=== PATIENT | female | born 1935 | race Caucasian/White ===

== ENCOUNTER 2022-09-16 22:59 | Inpatient (IN) ==
--- NOTE | 2022-09-16 23:07 | Emergency Department Note ---
HPI General Chief complaint: Extremity Injury, Lower Stated complaint: knee pain Time Seen by Provider: 09/16/22 23:06 Source: patient and EMS Mode of arrival: ambulatory Limitations: no limitations History of Present Illness HPI Narrative: Narrative: Patient is an 87-year-old female with a history of of GERD, CKD 3, hypertension, PRINCESS, and chronic tubulointerstitial nephritis who presents to the emergency department due to knee pain. She states that she twisted her knee, felt a pop, and then had immediate knee pain on the right. She denies any other symptoms at this time. She states that her knee pain becomes worse with pressure placed on the leg or palpation of the area just above her knee. She denies any other concerns at this time. Related Data Home Medications Medication Instructions Recorded Confirmed acyclovir 200 mg capsule 200 mg PO QDAY 05/17/20 01/06/22 acetaminophen 650 mg 1,300 mg PO Q4H 05/16/21 01/06/22 tablet,extended release bupropion HCl 150 mg 24 hr tablet, 150 mg PO QAM 05/16/21 01/06/22 extended release gabapentin 100 mg capsule 100 mg PO QDAY 05/16/21 01/06/22 fluoxetine 20 mg capsule 60 mg PO QDAY 01/05/22 01/06/22 Allergies Allergy/AdvReac Type Severity Reaction Status Date / Time Nortriptyline [NORTRIPTYLINE] Allergy Severe Hives Verified 09/16/22 23:00 venlafaxine Allergy Severe Unknown Verified 09/16/22 23:00 Review of Systems ROS ROS Narrative: Narrative: Constitutional: Denies fever or weakness Eyes: Denies eye pain or vision change ENT ED: Denies throat pain or rhinorrhea Cardiovascular: Denies chest pain, dyspnea on exertion, orthopnea or edema Respiratory: Denies shortness of breath or cough Gastrointestinal: Denies abdominal pain, nausea, vomiting, diarrhea, constipation, hematochezia or melena Musculoskeletal: Reports joint pain (Right knee); Denies back pain or myalgia Integumentary: Denies rash or lesions Neurological: Denies headache, weakness, numbness, confusion, abnormal gait or dizziness [facility] Narrative Patient History Narrative: Narrative: Medical/Surgical/Family History All Active Problems (Updated 09/17/22 @ 02:11 by Michoacano Monet MD) Costochondritis (Chronic) Sacroiliac joint pain (Chronic) GERD (gastroesophageal reflux disease) (Chronic) Epigastric pain (Chronic) Opioid dependence (Chronic) Chronic low back pain (Chronic) 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, or unspecified chronic kidney disease (Chronic) CKD (chronic kidney disease), stage III (Chronic) Dependent edema (Chronic) Supraventricular tachycardia (Chronic) Primary generalized (osteo)arthritis (Chronic) Lumbar spinal stenosis (Chronic) Lumbar radiculopathy (Chronic) Depression, major, recurrent, moderate (Chronic) Anxiety disorder (Chronic) PRINCESS (obstructive sleep apnea) (Chronic) Herpes simplex (Chronic) HTN (hypertension) (Chronic) CTIN (chronic tubulo-interstitial nephritis) (Chronic) Polypharmacy (Chronic) Cat bite (Acute) No-show for appointment (Acute) Femoral distal fracture (Acute) Medical History (Updated 09/17/22 @ 02:11 by Michoacano Monet MD) Anxiety disorder Chronic low back pain CKD (chronic kidney disease), stage III Costochondritis CTIN (chronic tubulo-interstitial nephritis) This is the most likely diagnosis especially in the face of previous chronic nonsteroidal anti-inflammatory use, PPI use, urinalysis without proteinuria or hematuria. Dependent edema Depression, major, recurrent, moderate Epigastric pain GERD (gastroesophageal reflux disease) Herpes simplex HTN (hypertension) Acceptable control with lisinopril 20 mg a day Hypertensive chronic kidney disease with stage 1 through stage 4 chronic kidney disease, or unspecified chronic kidney disease She has had longstanding hypertension but is been overmedicated in the past with resultant hypotensive episodes. First step would be to wean off the furosemide as I suspect she has no ECF volume expansion or at worst has diuretic related edema the treatment of which is to stop the diuretics. I suspect her underlying renal disease may be more of a tubulointerstitial nephritis. In either case treatment will be avoidance of nonsteroidals, diuretics, and use of lowest dose possible of a RAASI for blood pressure control Knee arthropathy Lumbar radiculopathy Lumbar spinal stenosis Opioid dependence PRINCESS (obstructive sleep apnea) Polypharmacy I believe this is the root cause of her many maladies. The types of pain she described are not the types currently thought of as treatable by a long-term narcotics. This is a problem that may need several colleagues to address. I have put forth a plan to her where she decreases her hydrocodone 1 tablet/day per week starting at her current 5 to 6 tablets a day and decreasing her dose steadily until a month from now she is on a single hydrocodone/acetaminophen at bedtime. In the interval I told her she could replace every tablet of hydrocodone she does not take with a acetaminophen tablet if needed. I would also highly recommend cognitive behavioral therapy and referral to a psychologist. Primary generalized (osteo)arthritis Sacroiliac joint pain Supraventricular tachycardia Surgical History History of appendectomy History of bladder surgery Bladder Sling History of hernia repair (~2015) Incisional and Ventral History of knee surgery (~2009) 2009, 2010 History of shoulder surgery (~1999) History of total hysterectomy Status post debridement (~2015) Of non-healing abdominal hernia Family History Mother Breast cancer Brother Multiple sclerosis Sister CVA (cerebral vascular accident) Social History Alcohol Intake Frequency: does not drink Substance Use: does not use Exam Narrative Narrative: Narrative: General Limitations: no limitations General appearance: Present alert and in no apparent distress; Absent anxious, appears intoxicated or sleepy Head Head: Present atraumatic and normocephalic Eye Eye: Present EOMI; Absent scleral icterus or nystagmus ENT ENT: Present mucous membranes moist; Absent nasal congestion Neck Neck: Present full ROM and trachea midline Chest Chest: Present normal inspection and symmetric chest wall rise; Absent tenderness Respiratory Respiratory: Present normal lung sounds bilaterally; Absent respiratory distress, rales/crackles, wheezes, stridor or accessory muscle use Cardiovascular Cardiovascular: Present regular rate, normal rhythm and normal heart sounds Adbominal Abdominal: Present soft and normal bowel sounds; Absent distention or tenderness Extremities Extremities: Present normal inspection, full ROM and tenderness (Just proximal to the right knee anteriorly) Back Back: Present normal inspection and full ROM; Absent tenderness Neurological Neurological: Present alert and oriented X3; Absent motor sensory deficit Psychiatric Psychiatric: Present normal affect and normal mood Skin Skin: Present warm (WNL), dry and normal color Course Vital Signs Vital signs: Vital Signs Temperature 97.9 F 09/16/22 23:01 Pulse Rate 70 09/16/22 23:01 Respiratory Rate 18 09/16/22 23:01 Blood Pressure 128/78 09/16/22 23:01 Pulse Oximetry (%) 98 09/16/22 23:01 Oxygen Delivery Method Room Air 09/16/22 23:01 Temperature 98.6 F 09/17/22 00:59 Pulse Rate 67 09/17/22 00:59 Respiratory Rate 18 09/17/22 00:59 Blood Pressure 144/96 09/17/22 00:59 Pulse Oximetry (%) 98 09/17/22 00:59 Oxygen Delivery Method Room Air 09/17/22 00:59 MDM MDM Narrative Medical decision making narrative: Narrative: Patient is an 87-year-old female who presents to the emergency department due to right knee pain. Differential diagnosis include distal femoral/periprosthetic fracture and soft tissue injury. Patient is found to have a periprosthetic femoral fracture. I have spoken to Dr. Guillaume who requested a hospitalist admission. I spoke with Dr. Tineo who has accepted patient for admission. Lab Data 09/16/22 23:29 Labs: Lab Results 09/16/22 09/16/22 09/16/22 Range/Units 23:29 23:30 23:40 WBC 4.8 (4.5-11.0) K/mcL RBC 3.01 L (3.59-5.38) M/mcL Hgb 9.7 L (11.2-15.7) g/dL Hct 30.6 L (34.1-44.9) % POC Hct 29.0 L (36-48) MCV 101.7 H (80.0-100.0) fL MCH 32.2 (26.0-34.0) pg MCHC 31.7 (31.0-36.0) g/dL RDW 13.8 (11.5-14.5) % Plt Count 224 (140-440) K/mcL MPV 10.3 (8.8-12.5) fL Immature Gran % (Auto) 0.2 (0.0-0.5) % Neut % (Auto) 63.3 (38.0-78.0) % Lymph % (Auto) 21.5 (15.5-49.0) % [place] % (Auto) 10.9 (1.0-12.0) % Eos % (Auto) 3.5 (0.0-7.0) % Baso % (Auto) 0.6 (0.0-2.0) % Lymph # (Auto) 1.03 L (1.50-4.80) K/mcL [place] # (Auto) 0.52 (0.10-0.90) K/mcL Eos # (Auto) 0.17 (0.00-0.70) K/mcL Baso # (Auto) 0.03 (0.00-0.30) K/mcL Immature Gran # 0.01 (0.00-0.05) K/mcl Absolute Neutrophils 3.03 (1.80-8.00) K/mcL PT 12.8 (11.9-14.5) sec INR 0.9 (0.9-1.1) APTT 24.5 (20.0-37.0) sec POC Sodium 139 (133-145) POC Potassium 4.2 (3.3-5.1) POC Chloride 104 (96-108) POC Total CO2 27.0 (22-30) POC BUN 28 H (6-20) POC Creatinine 1.8 H (0.6-1.2) POC Glucose 79 (70-105) POC WB Ioniz Calcium 1.19 (1.16-1.32) Discharge Plan Patient/Caregiver Discharge Instructions Pt seen by MUSIC PUBLISHER/PA only: No Clinical Impression: Femoral distal fracture Patient Disposition: Xfer As Inpt ([facility]) Discharge Date/Time: 09/17/22 00:59
[2022-09-16 23:35] LABS: POC Calcium, Ionized 1.19 (1.16-1.32); POC Creatinine 1.8 (0.6-1.2); POC Potassium 4.2 (3.3-5.1)
[2022-09-16 23:59] LABS: Basophils # (Auto) 0.03 K/mcL (0.00-0.30); Basophils % (Auto) 0.6 % (0.0-2.0); Eosinophils # (Auto) 0.17 K/mcL (0.00-0.70); Eosinophils % (Auto) 3.5 % (0.0-7.0); Hematocrit 30.6 % (34.1-44.9); Hemoglobin 9.7 g/dL (11.2-15.7); Lymphocytes # (Auto) 1.03 K/mcL (1.50-4.80); Lymphocytes % (Auto) 21.5 % (15.5-49.0); Mean Cell Volume 101.7 fL (80.0-100.0); Mean Corpuscular HGB Conc 31.7 g/dL (31.0-36.0); Mean Platelet Volume 10.3 fL (8.8-12.5); Monocytes # (Auto) 0.52 K/mcL (0.10-0.90); Monocytes % (Auto) 10.9 % (1.0-12.0); Neutrophils % (Auto) 63.3 % (38.0-78.0); Platelet Count 224 K/mcL (140-440); RBC 3.01 M/mcL (3.59-5.38); Red Cell Distribution Width 13.8 % (11.5-14.5); WBC 4.8 K/mcL (4.5-11.0)
[2022-09-17] MEDS ORDERED: ONDANSETRON 4 MG/2 ML VIAL IV PRN ×3 (00:22→17:53)
[2022-09-17 00:23] LABS: INR 0.9 (0.9-1.1); Partial Thromboplastin Time 24.5 sec (20.0-37.0); Prothrombin Time 12.8 sec (11.9-14.5)
[2022-09-17] MEDS: 0.9 % SODIUM CHLORIDE 1,000 ML IV SCH ×3 (00:38→20:43)
[2022-09-17] MEDS: HYDROmorphone 0.5 MG/0.5 ML SYRINGE IV PRN ×2 (00:58→03:10)
--- NOTE | 2022-09-17 05:59 | XRay Report ---
INDICATION: Fall, knee pain TECHNIQUE: AP and crosstable lateral COMPARISON: None FINDINGS:Previous right total knee arthroplasty. Periprosthetic distal right femoral fracture with dorsal angulation deformity. Proximal tibia is negative. IMPRESSION: 1. Previous right total knee arthroplasty 2. Periprosthetic distal right femoral fracture with dorsal angulation deformity Interpreted and Authenticated by: Jorge Luis Macedo 09/17/22
--- NOTE | 2022-09-17 06:03 | XRay Report ---
INDICATION: Pre surgical TECHNIQUE: AP supine chest x-ray COMPARISON: Previous examination dated 07/30/2015 FINDINGS: Lungs:Possible right apical mass. Follow-up upright PA and lateral chest x-ray with lordotic views recommended. Lungs are otherwise negative Heart, vascular:No significant cardiomegaly. Pulmonary vascularity is normal. No pulmonary edema or pulmonary congestion Mediastinum, shellie:No mediastinal widening. No hilar mass Pleura:No pleural fluid. No pleural-based mass or calcification Skeletal:Negative. IMPRESSION: 1. Possible right upper lobe mass. Upright PA and lateral chest x-ray and apical lordotic views recommended 2. Otherwise negative Interpreted and Authenticated by: Jorge Luis Macedo 09/17/22
--- NOTE | 2022-09-17 07:51 | Internal Med History&Physical ---
HPI History of Present Illness Patient information: Note initiated : 09/17/22 at 7:47 am Service Date, if different from initiated Date: [] Patient: Radha Ghosh 87 y/o F admitted on 09/17/22 for knee pain. Chief Complaint: [] History of present illness: Ms. Ghosh is a 87 year old F Who presented to ED with knee pain. She twisted her right knee and felt a pop with immediate pain To that knee. Patient states she was cleaning a stain on her carpet when she twisted and felt a crack and pop in her right leg with immediate pain and then fell to the ground. She had worsening pain in the knee after that especially with any weightbearing. Work-up in ED revealed a periprosthetic right femur fracture. Dr. Guillaume was contacted No recent illness. Review of Systems: Pertinent positives as above. Denies headache/fever/chills/nausea/vomi ting/chest or abdominal pain/cough/dyspnea/diarrhea. Remaining 10 point review of system reviewed negative PHYSICAL EXAM General: Alert, Awake, No acute Distress, Obese Eyes/N/T: EOMI, no scleral icterus, PERRL, Head/Neck: neck supple, full ROM, normocephalic atraumatic CV: RRR, No murmurs, normal s1/s2 Pulm: Clear b/l, no wheezing/rhonchi/rales, no respiratory distress Abd: soft, nontender, +BS x4 Ext: no clubbing/cyanosis/edema, nontender Neuro: Alert, no focal deficits, moves all extremities, CN 2-12 grossly intact, sensations intact b/l upper/lower Psychiatric: Skin: warm/dry, normal color PFSH PFSH All Active Problems (Updated 09/17/22 @ 02:11 by Michoacano Monet MD) Costochondritis (Chronic) Sacroiliac joint pain (Chronic) GERD (gastroesophageal reflux disease) (Chronic) Epigastric pain (Chronic) Opioid dependence (Chronic) Chronic low back pain (Chronic) 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, or unspecified chronic kidney disease (Chronic) CKD (chronic kidney disease), stage III (Chronic) Dependent edema (Chronic) Supraventricular tachycardia (Chronic) Primary generalized (osteo)arthritis (Chronic) Lumbar spinal stenosis (Chronic) Lumbar radiculopathy (Chronic) Depression, major, recurrent, moderate (Chronic) Anxiety disorder (Chronic) PRINCESS (obstructive sleep apnea) (Chronic) Herpes simplex (Chronic) HTN (hypertension) (Chronic) CTIN (chronic tubulo-interstitial nephritis) (Chronic) Polypharmacy (Chronic) Cat bite (Acute) No-show for appointment (Acute) Femoral distal fracture (Acute) Medical History (Updated 09/17/22 @ 02:11 by Michoacano Monet MD) Anxiety disorder Chronic low back pain CKD (chronic kidney disease), stage III Costochondritis CTIN (chronic tubulo-interstitial nephritis) This is the most likely diagnosis especially in the face of previous chronic nonsteroidal anti-inflammatory use, PPI use, urinalysis without proteinuria or hematuria. Dependent edema Depression, major, recurrent, moderate Epigastric pain GERD (gastroesophageal reflux disease) Herpes simplex HTN (hypertension) Acceptable control with lisinopril 20 mg a day Hypertensive chronic kidney disease with stage 1 through stage 4 chronic kidney disease, or unspecified chronic kidney disease She has had longstanding hypertension but is been overmedicated in the past with resultant hypotensive episodes. First step would be to wean off the furosemide as I suspect she has no ECF volume expansion or at worst has diuretic related edema the treatment of which is to stop the diuretics. I suspect her underlying renal disease may be more of a tubulointerstitial nephritis. In either case treatment will be avoidance of nonsteroidals, diuretics, and use of lowest dose possible of a RAASI for blood pressure control Knee arthropathy Lumbar radiculopathy Lumbar spinal stenosis Opioid dependence PRINCESS (obstructive sleep apnea) Polypharmacy I believe this is the root cause of her many maladies. The types of pain she described are not the types currently thought of as treatable by a long-term narcotics. This is a problem that may need several colleagues to address. I have put forth a plan to her where she decreases her hydrocodone 1 tablet/day per week starting at her current 5 to 6 tablets a day and decreasing her dose steadily until a month from now she is on a single hydrocodone/acetaminophen at bedtime. In the interval I told her she could replace every tablet of hydrocodone she does not take with a acetaminophen tablet if needed. I would also highly recommend cognitive behavioral therapy and referral to a psychologist. Primary generalized (osteo)arthritis Sacroiliac joint pain Supraventricular tachycardia Surgical History History of appendectomy History of bladder surgery Bladder Sling History of hernia repair (~2015) Incisional and Ventral History of knee surgery (~2009) 2009, 2010 History of shoulder surgery (~1999) History of total hysterectomy Status post debridement (~2015) Of non-healing abdominal hernia Family History Mother Breast cancer Brother Multiple sclerosis Sister CVA (cerebral vascular accident) Social History (Updated 11/17/19 @ 10:27 by Damir Manzanares MD) marital status: occupational status: retired physical activity: none smoking status: Former smoker alcohol intake frequency: does not drink substance use type: does not use MEDS/ALLERGIES Home Medications and Allergies Home Medications Medication Instructions Recorded Confirmed Type acyclovir 200 mg capsule 200 mg PO QDAY 05/17/20 01/06/22 History acetaminophen 650 mg 1,300 mg PO Q4H 05/16/21 09/17/22 History tablet,extended release bupropion HCl 150 mg 24 hr tablet, 150 mg PO QAM 05/16/21 09/17/22 History extended release gabapentin 100 mg capsule 100 mg PO QDAY 05/16/21 09/17/22 History fluoxetine 20 mg capsule 60 mg PO QDAY 01/05/22 01/06/22 History Allergies Allergy/AdvReac Type Severity Reaction Status Date / Time Nortriptyline [NORTRIPTYLINE] Allergy Severe Hives Verified 09/16/22 23:00 venlafaxine Allergy Severe Unknown Verified 09/16/22 23:00 EXAM Constitutional Vitals: Temp Pulse Resp BP Pulse Ox O2 Del Method 97.4 F 68 16 143/71 93 Room Air 09/17/22 03:37 09/17/22 03:37 09/17/22 03:37 09/17/22 03:37 09/17/22 03:37 09/17/22 03:37 DATA Data Completed and Pending Labs: Labs from last 24 hours 09/16/22 09/16/22 09/16/22 23:40 23:30 23:29 WBC 4.8 RBC 3.01 L Hgb 9.7 L Hct 30.6 L POC Hct 29.0 L MCV 101.7 H MCH 32.2 MCHC 31.7 RDW 13.8 Plt Count 224 MPV 10.3 Immature Gran % (Auto) 0.2 Neut % (Auto) 63.3 Lymph % (Auto) 21.5 [place] % (Auto) 10.9 Eos % (Auto) 3.5 Baso % (Auto) 0.6 Lymph # (Auto) 1.03 L [place] # (Auto) 0.52 Eos # (Auto) 0.17 Baso # (Auto) 0.03 Immature Gran # 0.01 Absolute Neutrophils 3.03 PT 12.8 INR 0.9 APTT 24.5 POC Sodium 139 POC Potassium 4.2 POC Chloride 104 POC Total CO2 27.0 POC BUN 28 H POC Creatinine 1.8 H POC Glucose 79 POC WB Ioniz Calcium 1.19 A/P Narrative A/P Narrative: A: *Right periprosthetic femur fracture: *?ARMANDO on CKD IIIb: *Anemia: *Neuropathy: *Depression/anxiety: *Obesity: BMI 33 *PRINCESS: Lifestyle modification P: -Dr. Guillaume for Ortho -Pain control -IVF's -Monitor renal function/UOP -Monitor H&H -Home CPAP -Home medication reconciliation -PT/OT -CM for placement -ppx: SCD and postop per Ortho Time Spent With Patient Time: Total time spent is greater than 50% in coordination of care (as documented) at patient's floor/unit and/or counseling patient: Initial: Total time with patient: 55 - 74 minutes QUALITY Stroke Symptom Onset Unknown: No VTE Deep Vein Thrombosis/Pulmonary Embolism Present on Admission: No
[2022-09-17] MEDS ORDERED: MAGNESIUM SULFATE 2 GM/50 ML BAG IV PRN (07:53)
[2022-09-17] MEDS ORDERED: POTASSIUM CHLORIDE 40 MEQ in DEXTROSE 5% IN WATER 500 ML IV PRN (07:53)
[2022-09-17] MEDS ORDERED: morphine 4 MG/ML VIAL IV PRN (07:53)
[2022-09-17] MEDS ORDERED: POLYETHYLENE GLYCOL 3350 17 GM PACKET PO PRN ×2 (07:53→18:17)
[2022-09-17] MEDS ORDERED: POTASSIUM CHLORIDE 20 MEQ TABLET PO PRN ×2 (07:53)
[2022-09-17] MEDS ORDERED: ACETAMINOPHEN 325 MG TABLET PO PRN (07:53)
[2022-09-17] MEDS ORDERED: SENNOSIDES 1 TABLET PO PRN (07:53)
[2022-09-17] MEDS ORDERED: IPRATROPIUM/ALBUTEROL 3 ML AMPUL.NEB NEB PRN ×2 (07:54→17:53)
[2022-09-17] MEDS ORDERED: SCOPOLAMINE 1 PATCH PATCH TOPICAL PRN (08:20)
--- NOTE | 2022-09-17 08:36 | History and Physical Report ---
DATE OF ADMISSION: 09/17/2022 IDENTIFICATION: The patient is an 87-year-old female. COMPLAINT: Right femur fracture. HISTORY: The patient was at home today. She was bending over to clean up a spot on her carpet. She had an audible crack in her right lower extremity, had immediate pain, was unable to bear weight, and was transferred to the emergency room at [facility] where radiographs have demonstrated a fracture of the supracondylar femur just above her right total knee arthroplasty. We are called for further evaluation and management. She does have pain with movement but finds that as long as she is carefully positioned her pain is fairly minimal. PAST MEDICAL HISTORY: Significant for hypertension, reflux disease, and chronic renal failure. HOME MEDICATIONS: 1. Acyclovir. 2. Bupropion. 3. Gabapentin. 4. Fluoxetine. ALLERGIES: 1. NORTRIPTYLINE. 2. VENLAFAXINE. REVIEW OF SYSTEMS: She has been really quite healthy recently. PHYSICAL EXAMINATION: GENERAL: She is awake and alert and really quite sharp for her 87 years of age. HEAD: Normocephalic, atraumatic. EYES: PERRLA. Conjunctiva clear. ENT: Within normal limits. HEART: Regular rate. LUNGS: Clear. ABDOMEN: Benign. EXTREMITIES: Right lower extremity is carefully positioned. Skin is intact. There is some rotational deformity. She seems to be neurovascularly without deficit. IMAGING: Her radiographs demonstrate a comminuted fracture of the supracondylar femur. This is just above the total knee arthroplasty. IMPRESSION: Right supracondylar femur fracture. This is periprosthetic. PLAN: We will proceed with an open reduction and internal fixation. Procedure risks, complications, and limitations were discussed. She understands these well and wishes to proceed. GDD:glynn Job ID: [id number] Doc ID: [id number] Jose L Guillaume MD
[2022-09-17 08:55] LABS: ALT/SGPT 7 U/L (<40); AST/SGOT 15 U/L (<32); Albumin 3.5 gm/dL (3.2-5.2); Albumin/Globulin Ratio 1.6 (1.0-2.3); Alkaline Phosphatase 72 U/L (39-117); Bilirubin,Direct < 0.2 mg/dL (0-0.3); Bilirubin,Total < 0.2 mg/dL (0.1-1.0); Blood Urea Nitrogen 28 mg/dL (8-23); Calcium 8.9 mg/dL (8.6-10.4); Carbon Dioxide 26 mmol/L (22-30); Chloride 104 mmol/L (96-108); Globulin 2.2 gm/dL (2.2-3.7); Glomerular Filtration Rate 31; Glucose 82 mg/dL (70-105); Lactate Dehydrogenase 208 U/L (135-225); Phosphorous 3.2 mg/dL (2.5-4.5); Triglycerides 96 mg/dL (<150); Uric Acid 6.8 mg/dL (2.5-8.0)
[2022-09-17] MEDS: DOCUSATE SODIUM 100 MG CAPSULE PO SCH ×3 (09:13→20:18)
[2022-09-17] MEDS: buPROPion 150 MG TAB.XL.24H PO SCH (09:13)
[2022-09-17] MEDS: GABAPENTIN 100 MG CAPSULE PO SCH (09:13)
[2022-09-17] MEDS: HYDROcodone/APAP 5/325MG TABLET PO PRN ×2 (09:13→20:36)
[2022-09-17] MEDS: 0.9 % SODIUM CHLORIDE 10 ML SYRINGE IV SCH ×2 (12:31→20:24)
[2022-09-17] MEDS ORDERED: ceFAZolin 2 GM in DEXTROSE 5% IN WATER 50 ML IV SCH ×2 (16:30→18:30)
[2022-09-17] MEDS ORDERED: TRANEXAMIC ACID 1,000 MG/10 ML VIAL ONE (16:40)
[2022-09-17] MEDS ORDERED: PROPOFOL 200 MG/20 ML VIAL IV ONE (16:40)
[2022-09-17] MEDS ORDERED: LIDOCAINE HCL/PF 100 MG/5 ML SYRINGE IV ONE (16:40)
[2022-09-17] MEDS ORDERED: MAGNESIUM SULFATE 2 GM/50 ML BAG IV ONE (16:40)
[2022-09-17] MEDS ORDERED: DEXAMETHASONE 10 MG/ML VIAL ONE (16:40)
[2022-09-17] MEDS ORDERED: KETAMINE 50 MG/ML Syringe (ANEST) IV ONE (16:40)
[2022-09-17] MEDS ORDERED: ONDANSETRON 4 MG/2 ML VIAL ONE (16:40)
[2022-09-17] MEDS ORDERED: ePHEDrine 50 MG/5 ML SYRINGE (ANEST) IV ONE (16:40)
[2022-09-17] MEDS ORDERED: ROPIVACAINE HCL/PF 30 ML VIAL IJ ONE (16:40)
[2022-09-17] MEDS ORDERED: GLYCOPYRROLATE 0.2 MG/ML VIAL IV ONE (16:40)
[2022-09-17] MEDS ORDERED: fentaNYL 100 MCG/2 ML VIAL IV ONE (16:40)
[2022-09-17] MEDS ORDERED: diphenhydrAMINE 50 MG/ML VIAL IV PRN (17:53)
[2022-09-17] MEDS ORDERED: ACETAMINOPHEN 1,000 MG/100 ML BAG IV ONE (17:53)
[2022-09-17] MEDS ORDERED: METHOCARBAMOL 1,000 MG/10 ML VIAL IV PRN (17:53)
[2022-09-17] MEDS ORDERED: NALOXONE HCL 0.4 MG/ML VIAL IV PRN (17:53)
[2022-09-17] MEDS ORDERED: MEPERIDINE 25 MG/ML VIAL IV PRN (17:53)
[2022-09-17] MEDS ORDERED: fentaNYL 100 MCG/2 ML VIAL IV PRN (17:53)
[2022-09-17] MEDS ORDERED: LACTATED RINGERS 250 ML IV PRN (17:53)
[2022-09-17] MEDS ORDERED: PROMETHAZINE 25 MG/ML VIAL IV PRN (17:53)
[2022-09-17] MEDS ORDERED: LACTATED RINGERS 1,000 ML IV SCH (18:00)
[2022-09-17] MEDS ORDERED: BISACODYL 10 MG SUPP.RECT PR PRN (18:17)
[2022-09-17] MEDS ORDERED: FLEETS ADULT ENEMA PR PRN (18:17)
[2022-09-17] MEDS ORDERED: BENZOCAINE/MENTHOL 1 LOZENGE PO PRN (18:17)
[2022-09-17] MEDS ORDERED: MAGNESIUM HYDROXIDE 30 ML ORAL.SUSP PO PRN (18:17)
--- NOTE | 2022-09-17 18:43 | XRay Report ---
INDICATION: surgical procedure TECHNIQUE: Intraoperative fluoroscopy and spot films utilized by Dr. Guillaume. Open reduction and internal fixation of a periprosthetic right knee fracture. 0.6 minutes fluoroscopy and 4.75 mGy exposure utilized. IMPRESSION: Intraoperative fluoroscopy and spot films Interpreted and Authenticated by: Jorge Luis Macedo 09/17/22
[2022-09-17] MEDS: SENNOSIDES 1 TABLET PO SCH (20:18)
[2022-09-17] MEDS ORDERED: ceFAZolin 1 GM VIAL ONE (20:30)
[2022-09-18] MEDS ORDERED: ACETAMINOPHEN 325 MG TABLET PO PRN
[2022-09-18] MEDS: HYDROCODONE/APAP 7.5/325MG TABLET PO PRN ×2 (03:44→09:16)
[2022-09-18] MEDS ORDERED: ceFAZolin 1 GM VIAL ONE ×2 (04:59→13:03)
[2022-09-18] MEDS: ceFAZolin 2 GM in DEXTROSE 5% IN WATER 50 ML IV SCH ×2 (05:02→13:55)
[2022-09-18] MEDS: 0.9 % SODIUM CHLORIDE 10 ML SYRINGE IV SCH ×3 (05:03→21:04)
[2022-09-18 06:37] LABS: Basophils # (Auto) 0 K/mcL (0.00-0.30); Basophils % (Auto) 0 % (0.0-2.0); Eosinophils # (Auto) 0 K/mcL (0.00-0.70); Eosinophils % (Auto) 0 % (0.0-7.0); Hematocrit 25.8 % (34.1-44.9); Hemoglobin 8.1 g/dL (11.2-15.7); Lymphocytes # (Auto) 0.55 K/mcL (1.50-4.80); Lymphocytes % (Auto) 8.3 % (15.5-49.0); Mean Cell Volume 102.4 fL (80.0-100.0); Mean Corpuscular HGB Conc 31.4 g/dL (31.0-36.0); Mean Platelet Volume 10.7 fL (8.8-12.5); Monocytes # (Auto) 0.38 K/mcL (0.10-0.90); Monocytes % (Auto) 5.7 % (1.0-12.0); Neutrophils % (Auto) 85.7 % (38.0-78.0); Platelet Count 239 K/mcL (140-440); RBC 2.52 M/mcL (3.59-5.38); Red Cell Distribution Width 13.8 % (11.5-14.5); WBC 6.6 K/mcL (4.5-11.0)
--- NOTE | 2022-09-18 06:59 | General Surgery Progress Note ---
SUBJECTIVE Subjective Patient information: Note initiated : 09/18/22 at 6:57 am Service Date, if different from initiated Date: [] Patient: Radha Ghosh 87 y/o F admitted on 09/17/22 for knee pain. Chief Complaint: [] Principal diagnosis: femur fracture, no complaints Constitutional Vitals: Vital Signs Temp Pulse Resp BP Pulse Ox O2 Del Method O2 Flow Rate 97.7 F 60 16 161/65 95 Room Air 2 09/18/22 03:33 09/18/22 03:33 09/18/22 03:33 09/18/22 03:33 09/18/22 05:22 09/18/22 05:22 09/18/22 03:33 Period Temp Pulse Resp BP Sys/Mcpherson Pulse Ox O2 Del Method O2 Flow Rate Last 24 Hr 97.1 F-98.9 F 57-81 11-31 99-190/53-113 91-100 Nasal Cannula- Room Air 0-6 Intake and Output 09/17/22 09/18/22 09/18/22 19:59 03:59 11:59 Intake Total 1850 1530 Output Total 900 500 Balance 950 1030 Weight 200 lb Intake & Output: Intake & Output 09/17/22 09/18/22 09/18/22 19:59 03:59 11:59 Intake Total 1850 1530 Output Total 900 500 Balance 950 1030 Weight 200 lb Intake: IV 150 1050 Sodium Chloride 0.9% 1,000 ml @ 1000 100 mls/hr IV .Q10H AKBAR Rx#: [id number] Ancef 2 gm In Dextrose 5% in 50 50 Water 50 ml @ 100 mls/hr IV Q8H AKBAR Rx#:[id number] Oral 480 IV - Manual Only 1700 Output: Urine Catheter Amount 750 500 Uretheral (Rae) 250 Estimated Blood Loss 150 Other: Meal NPO Urine Appearance Clear Clear Uretheral (Rae) Clear Clear Urine Color Yellow Yellow Uretheral (Rae) Yellow Yellow Urine Odor Normal Normal Uretheral (Rae) Normal Extremities Exam Extremities exam: Present neurovascular intact A/P Assessment and plan (1) Femur fracture, right: Assessment and plan: mobilize Plan: dc planning Status: Acute Time Spent With Patient Time: Total time spent is greater than 50% in coordination of care (as documented) at patient's floor/unit and/or counseling patient:
[2022-09-18 07:02] LABS: Prothrombin Time 13.6 sec (11.9-14.5)
[2022-09-18] MEDS: 0.9 % SODIUM CHLORIDE 1,000 ML IV SCH (07:07)
--- NOTE | 2022-09-18 07:16 | Internal Med Progress Note ---
SUBJECTIVE Subjective Patient information: Note initiated : 09/18/22 at 7:14 am Service Date, if different from initiated Date: [] Patient: Radha Ghosh 87 y/o F admitted on 09/17/22 for knee pain. Chief Complaint: [] Principal diagnosis: femur fracture, no complaints Interval history: History of present illness: Ms. Ghosh is a 87 year old F Who presented to ED with knee pain. She twisted her right knee and felt a pop with immediate pain To that knee. Patient states she was cleaning a stain on her carpet when she twisted and felt a crack and pop in her right leg with immediate pain and then fell to the ground. She had worsening pain in the knee after that especially with any weightbearing. Work-up in ED revealed a periprosthetic right femur fracture. Dr. Guillaume was contacted No recent illness. 09/18 Patient seems to feel better after the surgery. No overnight event or new complaints. Hemoglobin dropped to 8.1 from 9.7. Delusional component, no bloody diarrhea. Review of Systems: Pertinent positives as above. Denies headache/fever/chills/nausea/vomiting/chest or abdominal pain/cough/dyspnea/d iarrhea. PHYSICAL EXAM General: Alert, Awake, No acute Distress, Obese Eyes/N/T: EOMI, no scleral icterus, Head/Neck: neck supple, full ROM, CV: RRR, No murmurs, Pulm: Clear b/l, no wheezing/rhonchi/rales, no respiratory distress Abd: soft, nontender, +BS x4 Ext: no clubbing/cyanosis/edema, nontender Neuro: Alert, no focal deficits, moves all extremities sensations intact b/l upper/lower Psychiatric: Skin: warm/dry, normal color Constitutional Vitals: Vital Signs Temp Pulse Resp BP Pulse Ox O2 Del Method O2 Flow Rate 99.7 F H 82 18 107/81 93 Room Air 0 09/18/22 06:58 09/18/22 06:58 09/18/22 06:58 09/18/22 06:58 09/18/22 06:58 09/18/22 06:58 09/18/22 06:58 Period Temp Pulse Resp BP Sys/Mcpherson Pulse Ox O2 Del Method O2 Flow Rate Last 24 Hr 97.1 F-99.7 F 57-82 11-31 99-190/53-113 91-100 Nasal Cannula- Room Air 0-6 Intake and Output 09/17/22 09/18/22 09/18/22 19:59 03:59 11:59 Intake Total 1850 1530 1050 Output Total 900 500 Balance 950 1030 1050 Weight 90.718 kg Intake & Output: Intake & Output 09/17/22 09/18/22 09/18/22 19:59 03:59 11:59 Intake Total 1850 1530 1050 Output Total 900 500 Balance 950 1030 1050 Weight 90.718 kg Intake: IV 150 1050 1050 Sodium Chloride 0.9% 1,000 ml @ 1000 1000 100 mls/hr IV .Q10H [facility] Rx#: [id number] Ancef 2 gm In Dextrose 5% in 50 50 50 Water 50 ml @ 100 mls/hr IV Q8H [facility] Rx#:[id number] Oral 480 IV - Manual Only 1700 Output: Urine Catheter Amount 750 500 Uretheral (Rae) 250 Estimated Blood Loss 150 Other: Meal NPO Urine Appearance Clear Clear Uretheral (Rae) Clear Clear Urine Color Yellow Yellow Uretheral (Rae) Yellow Yellow Urine Odor Normal Normal Uretheral (Rae) Normal OBJ DATA Labs 09/18/22 05:42 09/18/22 05:42 Labs: Abnormal Lab Results 09/18/22 09/16/22 09/16/22 05:42 23:30 23:29 RBC 2.52 L 3.01 L Hgb 8.1 L 9.7 L Hct 25.8 L 30.6 L POC Hct 29.0 L MCV 102.4 H 101.7 H Neut % (Auto) 85.7 H Lymph % (Auto) 8.3 L Lymph # (Auto) 0.55 L 1.03 L POC BUN 28 H BUN Creatinine POC Creatinine 1.8 H Total Protein 09/16/22 23:00 RBC Hgb Hct POC Hct MCV Neut % (Auto) Lymph % (Auto) Lymph # (Auto) POC BUN BUN 28 H Creatinine 1.5 H POC Creatinine Total Protein 5.7 L Meds: Medications Acetaminophen (Acetaminophen 325 Mg Tablet) 650 mg PO Q6HP PRN; Protocol PRN Reason: Per Pain Protocol/Fever > 101 Hydrocodone Bitart/Acetaminophen (Hydrocodone/Apap 7.5/325mg Tablet) 0 tab PO Q4HP PRN; Protocol PRN Reason: Per Pain Protocol Last Admin: 09/18/22 03:44 Dose: 1 tab Albuterol/Ipratropium (Ipratropium/Albuterol 3 Ml Ampul.Neb) 3 ml NEB Q4HP PRN PRN Reason: Shortness Of Breath Bisacodyl (Bisacodyl 10 Mg Supp.Rect) 10 mg VT Q2-3DAYS PRN PRN Reason: Constipation Bupropion HCl (Bupropion 150 Mg Tab.Xl.24h) 150 mg PO QAM [facility] Last Admin: 09/17/22 09:13 Dose: 150 mg Docusate Sodium (Docusate Sodium 100 Mg Capsule) 100 mg PO BID [facility] Last Admin: 09/17/22 20:18 Dose: Not Given Fluoxetine HCl (Fluoxetine Hcl 20 Mg Capsule) 60 mg PO QDAY [facility] Gabapentin (Gabapentin 100 Mg Capsule) 100 mg PO QDAY [facility] Last Admin: 09/17/22 09:13 Dose: 100 mg Sodium Chloride (Sodium Chloride 0.9%) 1,000 mls @ 100 mls/hr IV .Q10H [facility] Last Admin: 09/18/22 07:07 Dose: 100 mls/hr Potassium Chloride 40 meq/ (Dextrose) 520 mls @ 130 mls/hr IV UD PRN PRN Reason: Potassium < 3 Magnesium Sulfate (Magnesium Sulfate) 2 gm in 50 mls @ 50 mls/hr IV UD PRN PRN Reason: Magnesium </= 1.6 Cefazolin Sodium 2 gm/ (Dextrose) 50 mls @ 100 mls/hr IV Q8H [facility]; Protocol Stop: 09/18/22 13:29 Last Infusion: 09/18/22 07:07 Dose: Infused Magnesium Hydroxide (Magnesium Hydroxide 30 Ml Oral.Susp) 30 ml PO BIDP PRN PRN Reason: Constipation Methocarbamol (Methocarbamol 750 Mg Tablet) 750 mg PO Q6HP PRN PRN Reason: Muscle Spasm Morphine Sulfate (Morphine 4 Mg/Ml Vial) 0 mg IV Q3HP PRN PRN Reason: Pain Ondansetron HCl (Ondansetron 4 Mg/2 Ml Vial) 4 mg IV Q4HP PRN PRN Reason: Nausea And Vomiting Polyethylene Glycol (Polyethylene Glycol 3350 17 Gm Packet) 17 gm PO DAILYP PRN PRN Reason: Constipation Polyethylene Glycol (Polyethylene Glycol 3350 17 Gm Packet) 17 gm PO DAILYP PRN PRN Reason: Constipation Potassium Chloride (Potassium Chloride 20 Meq Tablet) 40 meq PO UD PRN PRN Reason: Potssium is 3-3.5 Potassium Chloride (Potassium Chloride 20 Meq Tablet) 40 meq PO UD PRN PRN Reason: Potassium < 3 Scopolamine (Scopolamine 1 Patch Patch) 1 patch TOPICAL PREOP PRN PRN Reason: Nausea And Vomiting Senna (Sennosides 1 Tablet) 2 tab PO DAILYP PRN PRN Reason: Constipation Senna (Sennosides 1 Tablet) 2 tab PO HS [facility] Last Admin: 09/17/22 20:18 Dose: Not Given Sodium Biphosphate/Sodium Phosphate (Fleets Adult Enema) 1 dose [place] Q3-4DAYS PRN PRN Reason: Constipation Sodium Chloride (0.9 % Sodium Chloride 10 Ml Syringe) 10 ml IV Q8 [facility] Last Admin: 09/18/22 05:03 Dose: Not Given Throat Lozenges (Benzocaine/Menthol 1 Lozenge) 1 lozenge PO PRN PRN PRN Reason: Sore Throat Valacyclovir HCl (Valacyclovir 500 Mg Tablet) 500 mg PO QDAY [facility] A/P Narrative A/P Narrative: A: *Right periprosthetic femur fracture: s/p ORIF (09/17) *?ARMANDO on CKD IIIb: *Anemia: *Neuropathy: *Depression/anxiety: *Obesity: BMI 33 *PIRNCESS: Lifestyle modification P: -Dr. Guillaume for Ortho -Pain control -IVF's d/c -Monitor renal function/UOP -Monitor H&H -Home CPAP -PT/OT -CM for placement -ppx: SCD and postop per Ortho Time Spent With Patient Time: Total time spent is greater than 50% in coordination of care (as documented) at patient's floor/unit and/or counseling patient: Subsequent: Total time with patient: 35 - 49 minutes QUALITY Stroke Symptom Onset Unknown: No VTE Deep Vein Thrombosis/Pulmonary Embolism Present on Admission: No
--- NOTE | 2022-09-18 07:41 | EKG ---
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 Measurements Intervals [place] Rate: 65 P: 60 FL: 197 QRS: 41 QRSD: 89 T: 53 QT: 392 QTc: 410 Interpretive Statements Sinus rhythm Ventricular premature complex Electronically Signed On 09-18-2022 7:40:53 PDT by Jorge Luis Zavala M.D. /store/[email or web address]/[id number]
[2022-09-18 07:55] LABS: ALT/SGPT 6 U/L (<40); AST/SGOT 15 U/L (<32); Albumin 3.4 gm/dL (3.2-5.2); Albumin/Globulin Ratio 1.6 (1.0-2.3); Alkaline Phosphatase 85 U/L (39-117); Bilirubin,Direct < 0.2 mg/dL (0-0.3); Bilirubin,Total 0.2 mg/dL (0.1-1.0); Blood Urea Nitrogen 23 mg/dL (8-23); Calcium 7.8 mg/dL (8.6-10.4); Carbon Dioxide 21 mmol/L (22-30); Chloride 104 mmol/L (96-108); Globulin 2.1 gm/dL (2.2-3.7); Glomerular Filtration Rate 34; Glucose 156 mg/dL (70-105); Lactate Dehydrogenase 184 U/L (135-225); Triglycerides 102 mg/dL (<150); Uric Acid 6.5 mg/dL (2.5-8.0)
[2022-09-18] MEDS: FLUoxetine HCL 20 MG CAPSULE PO SCH (09:15)
[2022-09-18] MEDS: METHOCARBAMOL 750 MG TABLET PO PRN (09:16)
[2022-09-18] MEDS: buPROPion 150 MG TAB.XL.24H PO SCH (09:16)
[2022-09-18] MEDS: GABAPENTIN 100 MG CAPSULE PO SCH (09:16)
[2022-09-18] MEDS: valACYclovir 500 MG TABLET PO SCH (09:16)
[2022-09-18] MEDS: DOCUSATE SODIUM 100 MG CAPSULE PO SCH ×2 (09:16→21:04)
--- NOTE | 2022-09-18 18:07 | Internal Med Progress Note ---
SUBJECTIVE Subjective Patient information: Note initiated : 09/18/22 at 6:04 pm Service Date, if different from initiated Date: [] Patient: Radha Ghosh 87 y/o F admitted on 09/17/22 for knee pain. Chief Complaint: [] Principal diagnosis: femur fracture, no complaints Interval history: History of present illness: Ms. Ghosh is a 87 year old F Who presented to ED with knee pain. She twisted her right knee and felt a pop with immediate pain To that knee. Patient states she was cleaning a stain on her carpet when she twisted and felt a crack and pop in her right leg with immediate pain and then fell to the ground. She had worsening pain in the knee after that especially with any weightbearing. Work-up in ED revealed a periprosthetic right femur fracture. Dr. Guillaume was contacted No recent illness. 09/18 Patient seems to feel better after the surgery. No overnight event or new complaints. Hemoglobin dropped to 8.1 from 9.7. Delusional component, no bloody diarrhea. 09/19 Hemoglobin trended down to 6.4, the patient will receive 1 unit of red blood cells today. Follow-up hemoglobin this afternoon. Patient is hemodynamically stable, otherwise no issues. Physical exam Head: Atraumatic, normal inspection. Eyes: normal appearance, no scleral icterus. Neck: full ROM Respiratory: no respiratory distress. Cardiovascular: normal rate and rhythm, S1, S2. GI/Abdominal: soft, nontender, no guarding. Extremities: Right lower extremity in immobilizer. Neurological: CN II-XII intact, intact motor, intact sensation. Psychiatric: normal mood. Skin: warm, normal color Constitutional Vitals: Vital Signs Temp Pulse Resp BP Pulse Ox O2 Del Method O2 Flow Rate 97.9 F 70 20 113/47 91 Room Air 0 09/18/22 16:00 09/18/22 16:00 09/18/22 16:00 09/18/22 16:00 09/18/22 16:00 09/18/22 16:00 09/18/22 16:00 Period Temp Pulse Resp BP Sys/Mcpherson Pulse Ox O2 Del Method O2 Flow Rate Last 24 Hr 97.1 F-99.7 F 57-82 11-31 107-190/47-113 91-100 Nasal Cannula- Room Air 0-6 Intake and Output 09/18/22 09/18/22 09/18/22 03:59 11:59 19:59 Intake Total 1530 1290 650 Output Total 500 575 Balance 1030 1290 75 Weight 90.718 kg 90.718 kg Patient Weight 09/19/22 03:59 Weight 90.718 kg Intake & Output: Intake & Output 09/18/22 09/18/22 09/18/22 03:59 11:59 19:59 Intake Total 1530 1290 650 Output Total 500 575 Balance 1030 1290 75 Weight 90.718 kg 90.718 kg Intake: IV 1050 1050 50 Sodium Chloride 0.9% 1,000 ml @ 1000 1000 100 mls/hr IV .Q10H [facility] Rx#: [id number] Ancef 2 gm In Dextrose 5% in 50 50 50 Water 50 ml @ 100 mls/hr IV Q8H [facility] Rx#:[id number] Oral 480 240 600 Output: Urine Catheter Amount 500 575 Other: Meal Breakfast Percent of Meal Consumed 100% Feeding Ability Assist with Tray Set Up Urine Appearance Clear Clear Uretheral (Rae) Clear Urine Color Yellow Yellow Uretheral (Rae) Yellow Urine Odor Normal Normal Uretheral (Rae) Normal OBJ DATA Labs 09/19/22 05:30 09/18/22 05:42 Labs: Abnormal Lab Results 09/18/22 09/18/22 09/16/22 05:42 05:42 23:30 RBC 2.52 L Hgb 8.1 L Hct 25.8 L POC Hct 29.0 L MCV 102.4 H Neut % (Auto) 85.7 H Lymph % (Auto) 8.3 L Lymph # (Auto) 0.55 L Carbon Dioxide 21 L POC BUN 28 H BUN Creatinine 1.4 H POC Creatinine 1.8 H Glucose 156 H Calcium 7.8 L Total Protein 5.5 L Globulin 2.1 L 09/16/22 09/16/22 23:29 23:00 RBC 3.01 L Hgb 9.7 L Hct 30.6 L POC Hct MCV 101.7 H Neut % (Auto) Lymph % (Auto) Lymph # (Auto) 1.03 L Carbon Dioxide POC BUN BUN 28 H Creatinine 1.5 H POC Creatinine Glucose Calcium Total Protein 5.7 L Globulin Meds: Medications Acetaminophen (Acetaminophen 325 Mg Tablet) 650 mg PO Q6HP PRN; Protocol PRN Reason: Per Pain Protocol/Fever > 101 Hydrocodone Bitart/Acetaminophen (Hydrocodone/Apap 7.5/325mg Tablet) 0 tab PO Q4HP PRN; Protocol PRN Reason: Per Pain Protocol Last Admin: 09/18/22 09:16 Dose: 1 tab Albuterol/Ipratropium (Ipratropium/Albuterol 3 Ml Ampul.Neb) 3 ml NEB Q4HP PRN PRN Reason: Shortness Of Breath Aspirin (Aspirin 81 Mg Tab.Chew) 81 mg CHEWED DAILY [facility] Bisacodyl (Bisacodyl 10 Mg Supp.Rect) 10 mg NV Q2-3DAYS PRN PRN Reason: Constipation Bupropion HCl (Bupropion 150 Mg Tab.Xl.24h) 150 mg PO QAM [facility] Last Admin: 09/18/22 09:16 Dose: 150 mg Docusate Sodium (Docusate Sodium 100 Mg Capsule) 100 mg PO BID [facility] Last Admin: 09/18/22 09:16 Dose: 100 mg Fluoxetine HCl (Fluoxetine Hcl 20 Mg Capsule) 60 mg PO QDAY [facility] Last Admin: 09/18/22 09:15 Dose: 60 mg Gabapentin (Gabapentin 100 Mg Capsule) 100 mg PO QDAY [facility] Last Admin: 09/18/22 09:16 Dose: 100 mg Potassium Chloride 40 meq/ (Dextrose) 520 mls @ 130 mls/hr IV UD PRN PRN Reason: Potassium < 3 Magnesium Sulfate (Magnesium Sulfate) 2 gm in 50 mls @ 50 mls/hr IV UD PRN PRN Reason: Magnesium </= 1.6 Magnesium Hydroxide (Magnesium Hydroxide 30 Ml Oral.Susp) 30 ml PO BIDP PRN PRN Reason: Constipation Methocarbamol (Methocarbamol 750 Mg Tablet) 750 mg PO Q6HP PRN PRN Reason: Muscle Spasm Last Admin: 09/18/22 09:16 Dose: 750 mg Morphine Sulfate (Morphine 4 Mg/Ml Vial) 0 mg IV Q3HP PRN PRN Reason: Pain Ondansetron HCl (Ondansetron 4 Mg/2 Ml Vial) 4 mg IV Q4HP PRN PRN Reason: Nausea And Vomiting Polyethylene Glycol (Polyethylene Glycol 3350 17 Gm Packet) 17 gm PO DAILYP PRN PRN Reason: Constipation Polyethylene Glycol (Polyethylene Glycol 3350 17 Gm Packet) 17 gm PO DAILYP PRN PRN Reason: Constipation Potassium Chloride (Potassium Chloride 20 Meq Tablet) 40 meq PO UD PRN PRN Reason: Potssium is 3-3.5 Potassium Chloride (Potassium Chloride 20 Meq Tablet) 40 meq PO UD PRN PRN Reason: Potassium < 3 Scopolamine (Scopolamine 1 Patch Patch) 1 patch TOPICAL PREOP PRN PRN Reason: Nausea And Vomiting Senna (Sennosides 1 Tablet) 2 tab PO DAILYP PRN PRN Reason: Constipation Senna (Sennosides 1 Tablet) 2 tab PO HS [facility] Last Admin: 09/17/22 20:18 Dose: Not Given Sodium Biphosphate/Sodium Phosphate (Fleets Adult Enema) 1 dose NV Q3-4DAYS PRN PRN Reason: Constipation Sodium Chloride (0.9 % Sodium Chloride 10 Ml Syringe) 10 ml IV Q8 [facility] Last Admin: 09/18/22 12:02 Dose: Not Given Throat Lozenges (Benzocaine/Menthol 1 Lozenge) 1 lozenge PO PRN PRN PRN Reason: Sore Throat Valacyclovir HCl (Valacyclovir 500 Mg Tablet) 500 mg PO QDAY [facility] Last Admin: 09/18/22 09:16 Dose: 500 mg A/P Narrative A/P Narrative: Assessment:87-year-old female with a history of neuropathy, depression, anxiety, obesity, obstructive sleep apnea, right total knee arthroplasty admitted for right periprosthetic distal femur fracture. The patient underwent ORIF on 09/17/2022 and is currently awaiting placement for low intensity rehab. *Right periprosthetic femur fracture: s/p ORIF (09/17/22) *Possible ARMANDO on CKD IIIb: *Acute anemia with macrocytosis *Neuropathy: *Depression/anxiety: *Obesity: BMI 33 *PRINCESS Plan: -Dr. Guillaume for Ortho -Pain control -Monitor renal function/UOP -1 unit PRBC today. -Monitor H&H -Check vitamin B12 and folate levels -Home CPAP -PT/OT -CM for placement -DVT prophylaxis: Aspirin twice daily per Ortho -Disposition: Currently inpatient MedSurg, anticipate low intensity rehab at discharge. Time Spent With Patient Time: Total time spent is greater than 50% in coordination of care (as documented) at patient's floor/unit and/or counseling patient: QUALITY Stroke Symptom Onset Unknown: No VTE Deep Vein Thrombosis/Pulmonary Embolism Present on Admission: No
[2022-09-18] MEDS ORDERED: ASPIRIN 81 MG TAB.CHEW CHEWED SCH (21:00)
[2022-09-18] MEDS: SENNOSIDES 1 TABLET PO SCH (21:03)
[2022-09-18] MEDS: ASPIRIN 81 MG TAB.CHEW CHEWED SCH (21:04)
[2022-09-19] MEDS: 0.9 % SODIUM CHLORIDE 10 ML SYRINGE IV SCH ×3 (05:36→21:26)
[2022-09-19 06:42] LABS: INR 1.1 (0.9-1.1); Prothrombin Time 14.3 sec (11.9-14.5)
[2022-09-19 07:26] LABS: Hematocrit 20.2 % (34.1-44.9)
[2022-09-19 07:27] LABS: Hemoglobin 6.4 g/dL (11.2-15.7)
[2022-09-19] MEDS ORDERED: 0.9 % SODIUM CHLORIDE 250 ML IV SCH (08:00)
[2022-09-19] MEDS: buPROPion 150 MG TAB.XL.24H PO SCH (08:37)
[2022-09-19] MEDS: GABAPENTIN 100 MG CAPSULE PO SCH (08:37)
[2022-09-19] MEDS: METHOCARBAMOL 750 MG TABLET PO PRN ×2 (08:37→17:09)
[2022-09-19] MEDS: DOCUSATE SODIUM 100 MG CAPSULE PO SCH ×2 (08:37→21:25)
[2022-09-19] MEDS: ASPIRIN 81 MG TAB.CHEW CHEWED SCH ×2 (08:37→21:25)
[2022-09-19] MEDS: valACYclovir 500 MG TABLET PO SCH (08:37)
[2022-09-19] MEDS: FLUoxetine HCL 20 MG CAPSULE PO SCH (08:37)
[2022-09-19] MEDS: HYDROCODONE/APAP 7.5/325MG TABLET PO PRN ×3 (08:38→21:25)
[2022-09-19] MEDS: SENNOSIDES 1 TABLET PO SCH (21:26)
[2022-09-20] MEDS: 0.9 % SODIUM CHLORIDE 10 ML SYRINGE IV SCH ×3 (05:40→20:34)
[2022-09-20 06:10] LABS: Hematocrit 23.6 % (34.1-44.9); Hemoglobin 7.7 g/dL (11.2-15.7)
[2022-09-20 07:10] LABS: Blood Urea Nitrogen 22 mg/dL (8-23); Calcium 7.9 mg/dL (8.6-10.4); Carbon Dioxide 25 mmol/L (22-30); Chloride 105 mmol/L (96-108); Glomerular Filtration Rate 46; Glucose 114 mg/dL (70-105)
[2022-09-20] MEDS: METHOCARBAMOL 750 MG TABLET PO PRN (08:37)
[2022-09-20] MEDS: buPROPion 150 MG TAB.XL.24H PO SCH (08:37)
[2022-09-20] MEDS: DOCUSATE SODIUM 100 MG CAPSULE PO SCH ×2 (08:37→20:35)
[2022-09-20] MEDS: GABAPENTIN 100 MG CAPSULE PO SCH (08:37)
[2022-09-20] MEDS: ASPIRIN 81 MG TAB.CHEW CHEWED SCH ×2 (08:37→20:35)
[2022-09-20] MEDS: HYDROCODONE/APAP 7.5/325MG TABLET PO PRN ×2 (08:38→18:55)
[2022-09-20] MEDS: FLUoxetine HCL 20 MG CAPSULE PO SCH (08:38)
[2022-09-20] MEDS: valACYclovir 500 MG TABLET PO SCH (08:38)
[2022-09-20] MEDS: FOLIC ACID 1 MG TABLET PO SCH (08:38)
--- NOTE | 2022-09-20 11:30 | Internal Med Progress Note ---
SUBJECTIVE Subjective Patient information: Note initiated : 09/20/22 at 11:28 am Service Date, if different from initiated Date: [] Patient: Radha Ghosh 87 y/o F admitted on 09/17/22 for knee pain. Chief Complaint: [] Principal diagnosis: femur fracture, no complaints Interval history: History of present illness: Ms. Ghosh is a 87 year old F Who presented to ED with knee pain. She twisted her right knee and felt a pop with immediate pain To that knee. Patient states she was cleaning a stain on her carpet when she twisted and felt a crack and pop in her right leg with immediate pain and then fell to the ground. She had worsening pain in the knee after that especially with any weightbearing. Work-up in ED revealed a periprosthetic right femur fracture. Dr. Guillaume was contacted No recent illness. 09/18 Patient seems to feel better after the surgery. No overnight event or new complaints. Hemoglobin dropped to 8.1 from 9.7. Delusional component, no bloody diarrhea. 09/19 Hemoglobin trended down to 6.4, the patient will receive 1 unit of red blood cells today. Follow-up hemoglobin this afternoon. Patient is hemodynamically stable, otherwise no issues. 09/20 Hemoglobin 7.7 today, patient is in good spirits this morning. Serum folic acid was low, started oral folic acid replacement. Acute kidney injury has resolved. Physical exam Head: Atraumatic, normal inspection. Eyes: normal appearance, no scleral icterus. Neck: full ROM Respiratory: no respiratory distress. Cardiovascular: normal rate and rhythm, S1, S2. GI/Abdominal: soft, nontender, no guarding. Extremities: Right lower extremity in immobilizer. Neurological: CN II-XII intact, intact motor, intact sensation. Psychiatric: normal mood. Skin: warm, normal color Constitutional Vitals: Vital Signs Temp Pulse Resp BP Pulse Ox O2 Del Method O2 Flow Rate 99 F 86 16 168/84 99 Room Air 2 09/20/22 08:00 09/20/22 08:00 09/20/22 08:00 09/20/22 08:00 09/20/22 08:00 09/20/22 08:00 09/19/22 12:40 Period Temp Pulse Resp BP Sys/Mcpherson Pulse Ox O2 Del Method O2 Flow Rate Last 24 Hr 97.9 F-99 F 76-90 14-18 103-186/50-84 94-100 Nasal Cannula- Room Air 2-2 Intake and Output 09/19/22 09/20/22 09/20/22 19:59 03:59 11:59 Intake Total 358 920 Output Total 1100 Balance 358 -180 Weight 92.079 kg Intake & Output: Intake & Output 09/19/22 09/20/22 09/20/22 19:59 03:59 11:59 Intake Total 358 920 Output Total 1100 Balance 358 -180 Weight 92.079 kg Intake: IV 33 Sodium Chloride 0.9% 250 ml @ 33 20 mls/hr IV .[id number] [facility] Rx#: [id number] Oral 720 Blood Product 325 GI Tube Flush 200 Output: Void Amount 1100 Other: Meal Breakfast Percent of Meal Consumed 100% Feeding Ability Independent Urine Appearance Clear Cloudy Purewick Clear Uretheral (Rae) Clear Urine Color Dark Yellow Yellow Purewick Dark Yellow Uretheral (Rae) Dark Yellow Urine Odor Normal Normal Uretheral (Rae) Normal Stool Size Moderate Stool Color Brown Yellow Stool Consistency Soft Formed # Voids 1 # Bowel Movements 1 OBJ DATA Labs 09/20/22 05:21 09/20/22 05:20 Labs: Abnormal Lab Results 09/20/22 09/20/22 09/20/22 05:21 05:21 05:20 RBC Hgb 7.7 L Hct 23.6 L MCV Neut % (Auto) Lymph % (Auto) Lymph # (Auto) Carbon Dioxide Anion Gap 6.0 L Creatinine Glucose 114 H Calcium 7.9 L Total Protein Globulin Folate 3.8 L 09/19/22 09/19/22 09/18/22 16:56 05:30 05:42 RBC Hgb 8.0 L 6.4 L* Hct 20.2 L* MCV Neut % (Auto) Lymph % (Auto) Lymph # (Auto) Carbon Dioxide 21 L Anion Gap Creatinine 1.4 H Glucose 156 H Calcium 7.8 L Total Protein 5.5 L Globulin 2.1 L Folate 09/18/22 05:42 RBC 2.52 L Hgb 8.1 L Hct 25.8 L MCV 102.4 H Neut % (Auto) 85.7 H Lymph % (Auto) 8.3 L Lymph # (Auto) 0.55 L Carbon Dioxide Anion Gap Creatinine Glucose Calcium Total Protein Globulin Folate Meds: Medications Acetaminophen (Acetaminophen 325 Mg Tablet) 650 mg PO Q6HP PRN; Protocol PRN Reason: Per Pain Protocol/Fever > 101 Hydrocodone Bitart/Acetaminophen (Hydrocodone/Apap 7.5/325mg Tablet) 0 tab PO Q4HP PRN; Protocol PRN Reason: Per Pain Protocol Last Admin: 09/20/22 08:38 Dose: 1 tab Albuterol/Ipratropium (Ipratropium/Albuterol 3 Ml Ampul.Neb) 3 ml NEB Q4HP PRN PRN Reason: Shortness Of Breath Aspirin (Aspirin 81 Mg Tab.Chew) 81 mg CHEWED BID [facility] Last Admin: 09/20/22 08:37 Dose: 81 mg Bisacodyl (Bisacodyl 10 Mg Supp.Rect) 10 mg MS Q2-3DAYS PRN PRN Reason: Constipation Last Admin: 09/19/22 08:38 Dose: 10 mg Bupropion HCl (Bupropion 150 Mg Tab.Xl.24h) 150 mg PO QAM [facility] Last Admin: 09/20/22 08:37 Dose: 150 mg Docusate Sodium (Docusate Sodium 100 Mg Capsule) 100 mg PO BID [facility] Last Admin: 09/20/22 08:37 Dose: 100 mg Fluoxetine HCl (Fluoxetine Hcl 20 Mg Capsule) 60 mg PO QDAY [facility] Last Admin: 09/20/22 08:38 Dose: 60 mg Folic Acid (Folic Acid 1 Mg Tablet) 1 mg PO DAILY [facility] Last Admin: 09/20/22 08:38 Dose: 1 mg Gabapentin (Gabapentin 100 Mg Capsule) 100 mg PO QDAY [facility] Last Admin: 09/20/22 08:37 Dose: 100 mg Potassium Chloride 40 meq/ (Dextrose) 520 mls @ 130 mls/hr IV UD PRN PRN Reason: Potassium < 3 Magnesium Sulfate (Magnesium Sulfate) 2 gm in 50 mls @ 50 mls/hr IV UD PRN PRN Reason: Magnesium </= 1.6 Magnesium Hydroxide (Magnesium Hydroxide 30 Ml Oral.Susp) 30 ml PO BIDP PRN PRN Reason: Constipation Methocarbamol (Methocarbamol 750 Mg Tablet) 750 mg PO Q6HP PRN PRN Reason: Muscle Spasm Last Admin: 09/20/22 08:37 Dose: 750 mg Morphine Sulfate (Morphine 4 Mg/Ml Vial) 0 mg IV Q3HP PRN PRN Reason: Pain Ondansetron HCl (Ondansetron 4 Mg/2 Ml Vial) 4 mg IV Q4HP PRN PRN Reason: Nausea And Vomiting Polyethylene Glycol (Polyethylene Glycol 3350 17 Gm Packet) 17 gm PO DAILYP PRN PRN Reason: Constipation Polyethylene Glycol (Polyethylene Glycol 3350 17 Gm Packet) 17 gm PO DAILYP PRN PRN Reason: Constipation Potassium Chloride (Potassium Chloride 20 Meq Tablet) 40 meq PO UD PRN PRN Reason: Potssium is 3-3.5 Potassium Chloride (Potassium Chloride 20 Meq Tablet) 40 meq PO UD PRN PRN Reason: Potassium < 3 Scopolamine (Scopolamine 1 Patch Patch) 1 patch TOPICAL PREOP PRN PRN Reason: Nausea And Vomiting Senna (Sennosides 1 Tablet) 2 tab PO DAILYP PRN PRN Reason: Constipation Senna (Sennosides 1 Tablet) 2 tab PO HS [facility] Last Admin: 09/19/22 21:26 Dose: 2 tab Sodium Biphosphate/Sodium Phosphate (Fleets Adult Enema) 1 dose MS Q3-4DAYS PRN PRN Reason: Constipation Sodium Chloride (0.9 % Sodium Chloride 10 Ml Syringe) 10 ml IV Q8 [facility] Last Admin: 09/20/22 05:40 Dose: 10 ml Throat Lozenges (Benzocaine/Menthol 1 Lozenge) 1 lozenge PO PRN PRN PRN Reason: Sore Throat Valacyclovir HCl (Valacyclovir 500 Mg Tablet) 500 mg PO QDAY [facility] Last Admin: 09/20/22 08:38 Dose: 500 mg A/P Narrative A/P Narrative: Assessment:87-year-old female with a history of neuropathy, depression, anxiety, obesity, obstructive sleep apnea, right total knee arthroplasty admitted for right periprosthetic distal femur fracture. The patient underwent ORIF on 09/17/2022 and is currently awaiting placement for low intensity rehab. *Right periprosthetic femur fracture: s/p ORIF (09/17/22) *Resolved ARMANDO on CKD IIIb: *Acute anemia with macrocytosis *Neuropathy: *Depression/anxiety: *Obesity: BMI 33 *PRINCESS Plan: -Dr. Guillaume for Ortho -Pain control -Monitor renal function/UOP -Monitor H&H -Home CPAP at bedtime -PT/OT -CM for placement -DVT prophylaxis: Aspirin twice daily per Ortho -Disposition: Currently inpatient MedSurg, anticipate low intensity rehab at discharge. Time Spent With Patient Time: Total time spent is greater than 50% in coordination of care (as documented) at patient's floor/unit and/or counseling patient: QUALITY Stroke Symptom Onset Unknown: No VTE Deep Vein Thrombosis/Pulmonary Embolism Present on Admission: No
[2022-09-20 15:27] LABS: Hematocrit 23.4 % (34.1-44.9); Hemoglobin 7.5 g/dL (11.2-15.7)
[2022-09-20] MEDS: SENNOSIDES 1 TABLET PO SCH (20:35)
[2022-09-21] MEDS: 0.9 % SODIUM CHLORIDE 10 ML SYRINGE IV SCH (05:29)
[2022-09-21 06:04] LABS: Hemoglobin 7.3 g/dL (11.2-15.7)
[2022-09-21 06:22] LABS: Prothrombin Time 13.9 sec (11.9-14.5)
[2022-09-21 06:26] LABS: Blood Urea Nitrogen 23 mg/dL (8-23); Carbon Dioxide 25 mmol/L (22-30); Chloride 104 mmol/L (96-108); Glomerular Filtration Rate 46; Glucose 101 mg/dL (70-105)
--- NOTE | 2022-09-21 07:59 | Operative Note ---
DATE OF OPERATION: 09/17/2022 DATE OF PROCEDURE: 09/17/2022 PREOPERATIVE DIAGNOSIS: Right periprosthetic femur fracture. POSTOPERATIVE DIAGNOSIS: Right periprosthetic femur fracture. OPERATION PROPOSED: Reduction and internal fixation of periprosthetic femur fracture. OPERATION PERFORMED: Same. SURGEON: Jose L Guillaume M.D. INVENTORY CONTROL SPECIALIST: Kris Ramirez PA-C. This providers expertise and technical skill were required throughout the case. The PA assisted with preoperative coordination, intraoperative retraction, wound closure, and dressing and splint application, as well as postoperative documentation and care coordination. INDICATIONS: This is a lady who has a complex fracture above a total knee arthroplasty. She is in need of operative reduction and stabilization. DESCRIPTION OF PROCEDURE: Informed consent was obtained. She was taken to the operating room. She was provided with appropriate anesthetic and prophylactic antibiotics. She was carefully positioned. A lateral incision was made. I advanced to expose the fracture and the lateral border of the femur. A best possible reduction was obtained. I then placed an 8-hole precontoured plate from [employer]. A distal screw was applied parallel to the joint and just above the prosthesis. I then reduced the femur and the additional fracture fragments to the marcos. A very adequate reduction was obtained, proximal and distal screws were applied. The wounds were irrigated thoroughly and closed. The procedure was tolerated well. No complications. ESTIMATED BLOOD LOSS: 100 mL. GDD:marianne Job ID: [id number] Doc ID: [id number] Jose L Guillaume MD
[2022-09-21 08:52] LABS: Hematocrit 24.7 % (34.1-44.9); Hemoglobin 7.9 g/dL (11.2-15.7)
[2022-09-21] MEDS: GABAPENTIN 100 MG CAPSULE PO SCH (09:15)
[2022-09-21] MEDS: FLUoxetine HCL 20 MG CAPSULE PO SCH (09:15)
[2022-09-21] MEDS: DOCUSATE SODIUM 100 MG CAPSULE PO SCH (09:15)
[2022-09-21] MEDS: FOLIC ACID 1 MG TABLET PO SCH (09:15)
[2022-09-21] MEDS: buPROPion 150 MG TAB.XL.24H PO SCH (09:15)
[2022-09-21] MEDS: METHOCARBAMOL 750 MG TABLET PO PRN (09:15)
[2022-09-21] MEDS: ASPIRIN 81 MG TAB.CHEW CHEWED SCH (09:15)
[2022-09-21] MEDS: valACYclovir 500 MG TABLET PO SCH (09:15)
[2022-09-21] MEDS: HYDROCODONE/APAP 7.5/325MG TABLET PO PRN (09:16)
--- NOTE | 2022-09-21 10:21 | Discharge Summary ---
Discharge Provider Provider IMPORTANT FOLLOW-UP INFORMATION FOR PCP: Patient information: Note initiated : 09/21/22 at 10:19 am Service Date, if different from initiated Date: [] Patient: Radha Ghosh 87 y/o F admitted on 09/17/22 for knee pain. Chief Complaint: [] Date of admission: 09/17/22 00:59 Discharge date: 09/21/22 Primary care physician: Shiloh Huddleston Consults: 09/16/22 Consult to Physician [CONS] Stat Comment: Consulting Provider: Jose L Guillaume Reason For Exam: Physician to Consult Consult to Physician [CONS] Stat Comment: Consulting Provider: Laz Tineo Reason For Exam: Physician to Consult COURSE Hospital Course Hospital course: Ms. Ghosh is a 87 year old F Who presented to ED with knee pain. She twisted her right knee and felt a pop with immediate pain To that knee. Patient states she was cleaning a stain on her carpet when she twisted and felt a crack and pop in her right leg with immediate pain and then fell to the ground. She had worsening pain in the knee after that especially with any weightbearing. Work-up in ED revealed a periprosthetic right femur fracture. Dr. Guillaume was contacted No recent illness. 09/18 Patient seems to feel better after the surgery. No overnight event or new complaints. Hemoglobin dropped to 8.1 from 9.7. Delusional component, no bloody diarrhea. 09/19 Hemoglobin trended down to 6.4, the patient will receive 1 unit of red blood cells today. Follow-up hemoglobin this afternoon. Patient is hemodynamically stable, otherwise no issues. 09/20 Hemoglobin 7.7 today, patient is in good spirits this morning. Serum folic acid was low, started oral folic acid replacement. Acute kidney injury has resolved. 09/21 No significant events overnight, hemoglobin was 7.5 this morning and on recheck 7.9. The patient is discharged to senior care facility for low intensity rehab. Aspirin 81 mg twice daily for DVT prophylaxis per orthopedic surgery preference. She will be nonweightbearing to her right lower extremity until further instructions from orthopedic surgery. Follow-up with orthopedic surgery in clinic. Physical exam Head: Atraumatic, normal inspection. Eyes: normal appearance, no scleral icterus. Neck: full ROM Respiratory: no respiratory distress. Cardiovascular: normal rate and rhythm, S1, S2. GI/Abdominal: soft, nontender, no guarding. Extremities: Right lower extremity in immobilizer. Neurological: CN II-XII intact, intact motor, intact sensation. Psychiatric: normal mood. Skin: warm, normal color Discharge diagnosis: Right periprosthetic femur fracture Time Spent with Patient Time attestation: Total time spent providing and/or coordinating discharge services: Time spent: Greater than 30 minutes EXAM Constitutional Vitals: Temp Pulse Resp BP Pulse Ox O2 Del Method O2 Flow Rate 98.8 F 81 20 163/71 95 Room Air 2 09/21/22 07:45 09/21/22 07:45 09/21/22 07:45 09/21/22 07:45 09/21/22 07:45 09/21/22 07:45 09/19/22 12:40 Discharge Data Data Completed and Pending Labs on day of discharge: Labs from last 24 hours 09/21/22 09/21/22 09/21/22 07:54 05:47 05:30 Hgb 7.9 L 7.3 L Hct 24.7 L 23.0 L PT 13.9 INR 1.0 Sodium Potassium Chloride Carbon Dioxide Anion Gap BUN Creatinine GFR Calculation Glucose Calcium 09/21/22 09/20/22 05:29 14:54 Hgb 7.5 L Hct 23.4 L PT INR Sodium 136 Potassium 4.6 Chloride 104 Carbon Dioxide 25 Anion Gap 7.0 L BUN 23 Creatinine 1.1 GFR Calculation 46 Glucose 101 Calcium 8.0 L Discharge Plan Patient/Caregiver Discharge Instructions Activity: as instructed Diet: Regular Diet Activity Restrictions/Additional Instructions: Nonweightbearing to right lower extremity until further instructions from orthopedic surgery. Prescriptions: New folic acid 1 mg Tablet 1 mg PO DAILY Qty: 60 0RF methocarbamol 750 mg Tablet 750 mg PO Q6HP PRN (Reason: Muscle Spasm) Qty: 20 0RF hydrocodone-acetaminophen 7.5-325 mg Tablet 1 tab PO Q4HP PRN (Reason: Per Pain Protocol) Qty: 7 0RF polyethylene glycol 3350 [HealthyLax] 17 gram Powder In Packet 17 g PO DAILYP PRN (Reason: Constipation) Qty: 100 1RF sennosides [Senna Lax] 8.6 mg Tablet 17.2 mg PO HS PRN (Reason: constipation) 30 Days Qty: 60 0RF aspirin 81 mg tablet,delayed release (DR/EC) 81 mg PO BID Qty: 60 2RF Continued acyclovir 200 mg capsule 200 mg PO QDAY gabapentin 100 mg capsule 100 mg PO QDAY bupropion HCl 150 mg tablet extended release 24 hr 150 mg PO QAM acetaminophen 650 mg tablet extended release 1,300 mg PO Q4H fluoxetine 20 mg capsule 60 mg PO QDAY Other Ambulatory Orders: OT Discharge Order (Routine) Facility: [facility] - Location: [facility] Ordered By: Artis Sung Physical Therapy at Discharge - General (Routine) Facility: [facility] - Location: [facility] Ordered By: Artis Sung Follow Up Plan Follow up with: Jose L Guillaume MD [Physician] - Shiloh Huddleston MD [Primary Care Provider] - Patient Disposition: Xfer SNF Rehab Potential: Fair I certify that the patient requires SNF services: Yes Overall status at discharge: patient is progressing back to baseline Discharge Orders: Discharge Order (Routine); Ordered 09/21/22 Ordered By: Artis Sung QUALITY VTE Deep Vein Thrombosis/Pulmonary Embolism Present on Admission: No
== END 2022-09-21 12:36 | DRG 481 ==
LOC: ED 22:59 → ICU 09-17 00:59
PROVIDERS: ADMIT Internal Medicine; ATTEND Internal Medicine